=== PATIENT | male | born 1930 | race Caucasian/White ===

== ENCOUNTER 2016-10-15 07:45 | Outpatient (CLI) | payer MEDICARE, OTHER | END 2016-10-15 07:46 | disposition home or self-care (01) | DX: I10 Essential (primary) hypertension (principal); E78.5 Hyperlipidemia, unspecified; E11.51 Type 2 diabetes mellitus with diabetic peripheral angiopathy without gangrene ==

== ENCOUNTER 2017-05-06 07:08 | Outpatient (CLI) | payer MEDICARE, OTHER ==
[2017-05-06 07:57] LABS: ALBUMIN/GLOBULIN RATIO 1.6 (1.0-2.2); BILIRUBIN,TOTAL 0.7 mg/dL (0.2-1.0); BUN - BLOOD UREA NITROGEN 27 mg/dL (6-20); CALCIUM 9.4 mg/dL (8.5-10.3); CARBON DIOXIDE - CO2 29 mmol/L (21-32); CHLORIDE 100 mmol/L (101-111); CHOL/HDL RATIO 3.9 (<5.0); CHOLESTEROL 194 mg/dL; CREATININE 1.1 mg/dL (0.6-1.2); GFR - MDRD 63 (>89); GLUCOSE 114 mg/dL (70-100); HDL CHOLESTEROL 50 mg/dL; LDL/HDL RATIO 2.4 (<3.6); POTASSIUM 4.6 mmol/L (3.5-5.0); SODIUM 137 mmol/L (135-145); TOTAL PROTEIN 7.5 g/dL (6.7-8.2); TRIGLYCERIDES 130 mg/dL; VLDL CHOLESTEROL 26 mg/dL
[2017-05-06 08:06] LABS: HEMOGLOBIN A1C 0.58 g/dL
== END 2017-05-06 07:09 | disposition home or self-care (01) ==
LOC: LAB 07:08
PROVIDERS: ATTEND Family Medicine
DX: I50.9 Heart failure, unspecified (principal); E11.9 Type 2 diabetes mellitus without complications; I25.10 Atherosclerotic heart disease of native coronary artery without angina pectoris; I10 Essential (primary) hypertension; E78.5 Hyperlipidemia, unspecified; J44.9 Chronic obstructive pulmonary disease, unspecified
CPT/HCPCS: 36415; 80053; 80061; 83036

== ENCOUNTER 2017-11-29 09:38 | Outpatient (CLI) | payer MEDICARE, OTHER ==
[2017-11-29 10:13] LABS: CALCIUM 8.5 mg/dL (8.5-10.3); CREATININE 1.6 mg/dL (0.6-1.2)
== END 2017-11-29 09:39 | disposition home or self-care (01) ==
LOC: LAB 09:38
PROVIDERS: ATTEND Internal Medicine Cardiovascular Disease
DX: I45.10 Unspecified right bundle-branch block (principal)
CPT/HCPCS: 36415; 80048

== ENCOUNTER 2017-12-01 06:54 | Emergency (ER) | payer MEDICARE, OTHER ==
[2017-12-01] MEDS ORDERED: IPRATROPIUM/ALBUTEROL 3 ML NEB INH STA (07:24)
[2017-12-01] MEDS ORDERED: cefTRIAXone 1 GM in SODIUM CHLORIDE 0.9% MINIBAG 100 ML IV STA (08:30)
[2017-12-01] MEDS ORDERED: DEXAMETHASONE 10 MG/ML VIAL IVP STA (08:30)
--- NOTE | 2017-12-01 08:30 | XRAY Preliminary Report ---
Exam: XR CHEST 2 VIEW X-RAY IMPRESSION: 1. No definite acute abnormality of the chest although mild left basilar/retrocardiac atelectasis or infiltrate is not definitely excluded. 2. Stable chronic and postoperative findings, as above. [facility] SITE ID: [id number]
--- NOTE | 2017-12-01 08:30 | XRAY Report ---
EXAM: CHEST RADIOGRAPHY EXAM DATE: 12/01/2017 08:16 AM. CLINICAL HISTORY: Cough/congestion. COMPARISON: 10/14/2015. TECHNIQUE: 2 views. FINDINGS: Lungs/Pleura: Limited lung volumes. Left lateral pleural-based density/thickening and left costophren ic angle opacity are stable. No definite acute infiltrate mild left retrocardiac atelectasis or infil trate is not excluded. No definite pleural effusion. No pneumothorax. Mediastinum: Normal heart size. Aortic calcifications and postoperative mediastinal changes are redem onstrated. Other: None. IMPRESSION: 1. No definite acute abnormality of the chest although mild left basilar/retrocardiac atelectasis or infiltrate is not definitely excluded. 2. Stable chronic and postoperative findings, as above. [facility] Referring Provider Line: [phone] SITE ID: [id number]
--- NOTE | 2017-12-01 08:33 | ED Physician Documentation ---
PD HPI DYSPNEA - Stated complaint Stated Complaint: SOA - Chief complaint Chief Complaint: Resp - History obtained from History obtained from: Patient, Family - History of Present Illness Timing - onset: How many days ago (10) Timing - onset during: Rest Timing - duration: Days (10) Timing - details: Gradual onset, Still present Inciting event(s): URI Improved by: Inhaler/neb Worsened by: Exertion, Coughing. No: Laying flat Associated symptoms: Cough, Wheezing. No: Fever Similar symptoms before: Diagnosis (bronchitis, CHF) Recently seen: Not recently seen - Additional information Additional information: 87-year-old male with a history of CHF and COPD has developed a cough and congestion about 10 days ago after bringing his granddaughter into the emergency department for evaluation for a reaction to peanuts. He has had this cough and wheezing and this became substantially worse over the past 2 days. He does have some postnasal drainage. He is not having trouble laying flat he is having trouble walking across the room developed shortness of breath. He has had congestive heart failure previously he does have some swelling to both of his lower extremities that is minimal.He does not feel like this is an episode of congestive heart failure. Review of Systems Constitutional: reports: Myalgias, Fatigue. denies: Fever Eyes: denies: Photophobia Ears: denies: Ear pain Nose: reports: Rhinorrhea / runny nose, Congestion Throat: denies: Sore throat Cardiac: denies: Chest pain / pressure, Palpitations Respiratory: reports: Dyspnea, Cough, Wheezing GI: denies: Nausea, Vomiting : denies: Dysuria, Frequency Skin: denies: Rash Musculoskeletal: reports: Extremity swelling. denies: Neck pain, Back pain, Extremity pain Neurologic: denies: Generalized weakness, Focal weakness, Numbness PD PAST MEDICAL HISTORY - Past Medical History Cardiovascular: Hypertension, High cholesterol, Coronary artery disease, [place] Respiratory: COPD, Sleep apnea, Other Neuro: None, TIA Endocrine/Autoimmune: None : Benign prostate hypertrophy Musculoskeletal: Osteoarthritis, Chronic back pain - Past Surgical History Past Surgical History: Yes Ortho: Rotator cuff repair Cardiovascular: CABG, Coronary stent, Vascular surgery, AAA HEENT: Tonsil/Adenoidectomy - Present Medications Home Medications: Ambulatory Orders Medication Instructions Recorded Confirmed Albuterol Sulfate [Proventil Hfa] 2 puffs INH .Q4-6HRS PRN 05/08/15 10/14/15 Furosemide [Lasix] 40 mg PO DAILY 05/08/15 10/14/15 Ibuprofen 800 mg PO BID 05/08/15 10/14/15 Isosorbide Mononitrate [Isosorbide 90 mg PO DAILY 05/08/15 10/14/15 Mononitrate ER] Losartan [Cozaar] 50 mg PO DAILY 05/08/15 10/14/15 Metoprolol Succinate 25 mg PO BID 05/08/15 10/14/15 Omeprazole [PriLOSEC] 20 mg PO BID 05/08/15 10/14/15 Ranolazine [Ranexa] 500 mg PO BID 05/08/15 10/14/15 Tiotropium [Spiriva] 1 puffs INH DAILY 05/08/15 10/14/15 Aspirin [Adult Low Dose Aspirin EC] 81 mg PO DAILY 10/14/15 10/14/15 Budesonide/Formoterol Fumarate 2 puffs INH BID 10/14/15 10/14/15 [Symbicort 160-4.5 Mcg Inhaler] Nitroglycerin Belsano [Nitrolingual 1 spray MM .USE DIRECTED PRN 10/14/1510/14 Belsano] Potassium Chloride 10 meq PO DAILY 10/14/15 10/14/15 Azithromycin [Zithromax] 250 mg PO DAILY #6 tablet 12/01/17 Benzonatate [Tessalon] 100 - 200 mg PO TID PRN #20 capsule 12/01/17 - Allergies Allergies/Adverse Reactions: Allergies Allergy/AdvReac Type Severity Reaction Status Date / Time lisinopril Allergy Respiratory Verified 12/01/17 07:03 Penicillins Allergy Hives Verified 12/01/17 07:03 terazosin Allergy Unknown Verified 12/01/17 07:03 - Social History Does the pt smoke?: No Smoking Status: Never smoker Does the pt drink ETOH?: Yes Does the pt have substance abuse?: No - Immunizations Immunizations are current?: Yes PD ED PE NORMAL - Vitals Vital signs reviewed: Yes - General General: Alert and oriented X 3, No acute distress, Well developed/nourished - HEENT HEENT: Atraumatic, PERRL, EOMI, Pharynx benign, Other (left TM is inflamed the right is clear. Mucous membranes are dry) - Neck Neck: Supple, no meningeal sign, No bony TTP - Cardiac Cardiac: RRR, No murmur - Respiratory Respiratory: No respiratory distress, Other (scattered wheezes and rhonchi throughout) - Abdomen Abdomen: Soft, Non tender - Back Back: No CVA TTP, No spinal TTP - Derm Derm: Normal color, Warm and dry, No rash - Extremities Extremities: No deformity, Other (trace edema bilaterally ) - Neuro Neuro: No motor deficit, No sensory deficit Eye Opening: Spontaneous Motor: Obeys Commands Verbal: Oriented GCS Score: 15 - Psych Psych: Normal mood, Normal affect Results - Vitals Vitals: Vital Signs - 24 hr 12/01/17 12/01/17 12/01/17 06:59 07:24 07:49 Temperature 36.7 C Heart Rate 70 66 75 Respiratory 22 14 18 Rate Blood Pressure 148/88 H 127/70 O2 Saturation 96 98 12/01/17 09:33 Temperature Heart Rate 67 Respiratory 18 Rate Blood Pressure 137/77 H O2 Saturation 94 Oxygen O2 Source Room air - EKG (time done) 0701 Rate: Rate (enter#) (71) Rhythm: NSR Intervals: Prolonged IA, RBBB Ischemia: Q waves Compare to prior EKG: Changed from prior EKG (SPT 10-13-2015 rate has slowed. ) Computer interpretation: Agree with computer - Labs Labs: Laboratory Tests 12/01/17 12/01/17 12/01/17 09:07 09:07 09:07 WBC 9.3 RBC 3.62 L Hgb 12.2 L Hct 35.7 L MCV 98.6 H MCH 33.8 H MCHC 34.3 RDW 13.3 Plt Count 212 MPV 7.2 L Neut # 6.2 Lymph # 2.2 Millard # 0.8 Eos # 0.1 Baso # 0.1 Absolute Nucleated RBC 0.00 Nucleated RBC % 0.0 Troponin I < 0.04 B-Natriuretic Peptide 113 H - Rads (name of study) 2 veiw chest Radiology: Prelim report reviewed (Impression: 1. No definite acute abnormality of the chest although mild left basilar/retrocardiac atelectasis or infiltrate is not definitely excluded. 2. Stable chronic and postoperative findings as above.), EMP read indepedently, See rad report Procedures - IVC sono (time) 0825 Bedside IVC sono: IVC measures (cm) (1.69), IVC collapsed c insp (cm) (complete) , Euvolemia, Other (completely collapsing vessle-no evidence for increased CVP) PD MEDICAL DECISION MAKING - ED course Complexity details: reviewed old records, reviewed results, re-evaluated patient , considered differential, d/w patient, d/w family ED course: 87-year-old male with a history of vascular surgery congestive heart failure has developed a cough and congestion has otitis on examination and a slight infiltrate on his chest x-ray. Here in the emergency department he is treated with dexamethasone and Rocephin as well as a DuoNeb treatment. DuoNeb treatment appears to improve the patient's breathing considerably. He does have coughing paroxysms and these are the most bothersome symptom to the patient.I discussed with him the findings on the x-ray and a reason to return to the emergency department should he have any worsening of his symptoms. Departure - Departure Disposition: 01 Home, Self Care Clinical Impression: Moderate COPD (chronic obstructive pulmonary disease) Pneumonia Qualifiers: Pneumonia type: due to unspecified organism Laterality: left Lung location: lower lobe of lung Qualified Code(s): J18.1 - Lobar pneumonia, unspecified organism Instructions: ED COPD Flare, ED Pneumonia Adult Follow-Up: Nikhil Best MD [Primary Care Provider] - Prescriptions: Azithromycin [Zithromax] 250 mg PO DAILY #6 tablet Benzonatate [Tessalon] 100 - 200 mg PO TID PRN #20 capsule PRN Reason: Cough
[2017-12-01 09:20] LABS: BASOPHILS # (AUTO) 0.1 10^3/uL (0.0-0.1); BASOPHILS % (AUTO) 0.6 %; EOSINOPHILS # (AUTO) 0.1 10^3/uL (0.0-0.7); EOSINOPHILS % (AUTO) 0.8 %; HGB - HEMOGLOBIN 12.2 g/dL (14.0-18.0); LYMPHOCYTES # (AUTO) 2.2 10^3/uL (1.5-3.5); LYMPHOCYTES % (AUTO) 23.5 %; MEAN CORPUSCULAR HEMOGLOBIN 33.8 pg (27.0-31.0); MEAN CORPUSCULAR HGB CONC 34.3 g/dL (32.0-36.0); MEAN CORPUSCULAR VOLUME 98.6 fL (80.0-94.0); MEAN PLATELET VOLUME 7.2 fL (7.4-11.4); MONOCYTES # (AUTO) 0.8 10^3/uL (0.0-1.0); MONOCYTES % (AUTO) 8.3 %; NEUTROPHILS # (AUTO) 6.2 10^3/uL (1.5-6.6); NEUTROPHILS % (AUTO) 66.8 %; PLT - PLATELET COUNT 212 10^3/uL (130-450); RED BLOOD COUNT 3.62 10^6/uL (4.70-6.10); RED CELL DISTRIBUTION WIDTH 13.3 % (12.0-15.0); WHITE BLOOD COUNT 9.3 x10^3/uL (4.8-10.8)
[2017-12-01 12:47] VITALS: BP 130/73
== END 2017-12-01 12:47 | disposition home or self-care (01) ==
LOC: ED 06:54
DX: J44.9 Chronic obstructive pulmonary disease, unspecified (principal); J18.9 Pneumonia, unspecified organism; E86.0 Dehydration; I25.10 Atherosclerotic heart disease of native coronary artery without angina pectoris; I25.2 Old myocardial infarction; I50.9 Heart failure, unspecified; E78.00 Pure hypercholesterolemia, unspecified; Z95.1 Presence of aortocoronary bypass graft; Z95.5 Presence of coronary angioplasty implant and graft
CPT/HCPCS: 36415; 71046; 83880; 84484; 85025; 93005; 94640; 94664; 96365; 96375; 99284